=== PATIENT | female | born 1985 | race African-American/Black ===

== ENCOUNTER 2018-09-09 00:21 | Emergency (ER) | payer MEDICAID ==
[~2018-09-09] VITALS: Ht 180.3 cm; Wt 133.2 kg
[2018-09-09 00:33] VITALS: Ht 180.3 cm; Wt 133.2 kg
[2018-09-09] MEDS ORDERED: LISINOPRIL10 MG PO (00:34)
[2018-09-09] MEDS ORDERED: NEURONTIN 300300 MG PO (01:05)
[2018-09-09] MEDS ORDERED: TORADOL10 MG PO (01:05)
[2018-09-09 01:44] VITALS: BP 152/92
== END 2018-09-09 01:48 | disposition home or self-care (01) ==
LOC: D.ER 00:21
DX: M54.16 Radiculopathy, lumbar region (principal)

== ENCOUNTER 2019-11-07 18:53 | Emergency (ER) | payer MEDICAID ==
[~2019-11-07] VITALS: Ht 180.3 cm; Wt 122.7 kg
[~2019-11-07 18:53] MED LIST: LISINOPRIL10 MG PO; NEURONTIN 300300 MG PO; TORADOL10 MG PO
[2019-11-07 19:08] VITALS: Ht 180.3 cm; Wt 122.7 kg
[2019-11-07] MEDS ORDERED: HYDROCODON-ACE1 EAC7 PO (21:10)
[2019-11-07] MEDS ORDERED: CYCLOBENZAPRINE10 MG PO (21:10)
[2019-11-07 21:15] VITALS: BP 135/93
== END 2019-11-07 21:30 | disposition home or self-care (01) ==
LOC: D.ER 18:53
DX: S13.4XXA Sprain of ligaments of cervical spine, initial encounter (principal); V49.9XXA Car occupant (driver) (passenger) injured in unspecified traffic accident, initial encounter; I10 Essential (primary) hypertension